=== PATIENT | female | born 1950 | race Caucasian/White ===

== ENCOUNTER 2024-12-01 11:15 | Emergency (ER) | payer MEDICARE ==
[2024-12-01] MEDS ORDERED: diphenhydrAMINE 50 MG/ML VIAL ONE (12:17)
[2024-12-01] MEDS ORDERED: Metoclopramide HCl 10 MG (2 mL) VIAL ONE (12:18)
[2024-12-01] MEDS ORDERED: Acetaminophen 500 MG TAB ONE (12:20)
[2024-12-01] MEDS ORDERED: hydrALAZINE 20 MG/ML VIAL ONE ×2 (12:20→13:49)
[2024-12-01 12:32] LABS: #Basophils 0.03 10x3/uL (0.0-0.2); #Eosinophils 0.16 10x3/uL (0.0-0.7); #Monocytes 0.61 10x3/uL (0.11-0.59); #Neutrophils 5.50 10x3/uL (1.40-6.50); %Basophils 0.4 % (0.0-1.0); %Eosinophils 2.0 % (0.0-10.0); %Lymphocytes 21.8 % (21.0-51.0); %Monocytes 7.5 % (0.0-10.0); %Neutrophils 68.1 % (42.0-75.0); Hematocrit 36.5 % (36.0-47.0); Hemoglobin 12.3 g/dL (12.0-16.0); Mean Corpuscular Hemoglobin 32.2 pg (27.0-31.0); Mean Corpuscular Volume 95.5 fL (78.0-98.0); Platelet Count 197 10x3/uL (130-400); Red Blood Cell (RBC) Count 3.82 mill/uL (4.20-5.40); White Blood Cell (WBC) Count 8.08 10x3/uL (4.8-10.8)
[2024-12-01 12:51] LABS: ALT (SGPT) 41 U/L (Less than 34); AST (SGOT) 52 U/L (11-34); Albumin 3.8 g/dL (3.1-4.5); Alkaline Phosphatase 69 U/L (40-110); Anion Gap 9 mmol/L (10-20); BUN (Urea Nitrogen) 19 mg/dL (9.8-20.1); Bilirubin, Total 0.5 mg/dL (0.3-1.2); Calc. Creatinine Clearance 0 mL/min (70-130); Calcium 8.9 mg/dL (7.8-10.44); Carbon Dioxide 24 mmol/L (23-31); Chloride 110 mmol/L (98-107); Globulin 3.0 g/dL (2.4-3.5); Glucose 108 mg/dL (83-110); Potassium 3.9 mmol/L (3.5-5.1); Sodium 139 mmol/L (136-145)
== END 2024-12-01 14:51 | disposition home or self-care (01) ==
LOC: ERS 11:15
DX: R51.9 Headache, unspecified (principal); I10 Essential (primary) hypertension; E03.9 Hypothyroidism, unspecified; E78.5 Hyperlipidemia, unspecified; Z79.899 Other long term (current) drug therapy
CPT/HCPCS: 70450; 80053; 84484; 85025; 93005; 94760; J0360; J1200; J2765; 96365; 96375; 96376